=== PATIENT | male | born 1940 | race Caucasian/White ===

== ENCOUNTER → 2020-06-27 | Outpatient (CLI) | payer MEDICARE, OTHER ==
[~2020-06-27] MED LIST: ALBU0.63 NEB; ALBU2.5V8 IH; ALLO300T PO; CRESTOR20 MG PO; CYCL5TAB PO; DILT180C29 PO; FLUT1BLS IH; FLUT9.9S NS; GABA-586 PO; LORA10TA3 PO; METO-313 PO; OMEP40CA45 PO; RIVA20TA2 PO
== END ==
LOC: LAB 12:49
PROVIDERS: ATTEND Nurse Anesthetist, Certified Registered
DX: Z01.812 Encounter for preprocedural laboratory examination (principal); R13.10 Dysphagia, unspecified; Z20.828 Contact with and (suspected) exposure to other viral communicable diseases
CPT/HCPCS: U0003

== ENCOUNTER → 2020-06-30 | Day surgery (SDC) | payer MEDICARE, OTHER ==
[~2020-06-30] MED LIST changes: +IPRATRPIUM/ALBUTEROL 0.5/2.5MG 3 ML NEBU. NEB PRN; +IV RINGERS SOLUTION,LACTATED 1,000 ML IV SCH; +LIDOCAINE 2% PF 5 ML VIAL. ONE; +ONDANSETRON PF 4 MG/2 ML VIAL. IV PRN; +PROPOFOL 10,000 MCG/ML (20ML) VIAL IV ONE
[2020-06-30 13:10] VITALS: BP 174/74
== END | disposition home or self-care (01) ==
LOC: SURG 10:51
PROVIDERS: ATTEND Internal Medicine Gastroenterology
DX: R13.10 Dysphagia, unspecified (principal); K21.00 Gastro-esophageal reflux disease with esophagitis, without bleeding; K22.2 Esophageal obstruction; K29.00 Acute gastritis without bleeding; I48.91 Unspecified atrial fibrillation; J44.9 Chronic obstructive pulmonary disease, unspecified; Z79.899 Other long term (current) drug therapy; Z88.8 Allergy status to other drugs, medicaments and biological substances; Z88.0 Allergy status to penicillin
CPT/HCPCS: 43239; 43450; J2001; J2704; J7120

== ENCOUNTER → 2020-08-29 | Outpatient (CLI) | payer MEDICARE, OTHER ==
[2020-06-30 13:10] VITALS: BP 174/74
[~2020-08-29] MED LIST changes: -IPRATRPIUM/ALBUTEROL 0.5/2.5MG 3 ML NEBU. NEB PRN; -IV RINGERS SOLUTION,LACTATED 1,000 ML IV SCH; -LIDOCAINE 2% PF 5 ML VIAL. ONE; -ONDANSETRON PF 4 MG/2 ML VIAL. IV PRN; -PROPOFOL 10,000 MCG/ML (20ML) VIAL IV ONE
== END ==
LOC: LAB 13:21
PROVIDERS: ATTEND Nurse Anesthetist, Certified Registered
DX: Z01.812 Encounter for preprocedural laboratory examination (principal); K21.9 Gastro-esophageal reflux disease without esophagitis; Z20.828 Contact with and (suspected) exposure to other viral communicable diseases
CPT/HCPCS: U0003

== ENCOUNTER → 2020-09-01 | Day surgery (SDC) | payer MEDICARE, OTHER ==
[~2020-09-01] MED LIST changes: +IPRATRPIUM/ALBUTEROL 0.5/2.5MG 3 ML NEBU. NEB PRN; +IV RINGERS SOLUTION,LACTATED 1,000 ML IV SCH; +KETAMINE HCL IN NACL, ISO-OSM 50 MG/5 ML SYRINGE ONE; +LIDOCAINE 2% PF 5 ML VIAL. ONE; +ONDANSETRON PF 4 MG/2 ML VIAL. IV PRN; +PROPOFOL 10,000 MCG/ML (20ML) VIAL IV ONE
[2020-09-01 13:18] VITALS: BP 179/89
== END | disposition home or self-care (01) ==
LOC: SURG 10:53
PROVIDERS: ATTEND Internal Medicine Gastroenterology
DX: R13.10 Dysphagia, unspecified (principal); K22.2 Esophageal obstruction; K29.00 Acute gastritis without bleeding; J44.9 Chronic obstructive pulmonary disease, unspecified; I48.91 Unspecified atrial fibrillation; K21.00 Gastro-esophageal reflux disease with esophagitis, without bleeding; Z88.0 Allergy status to penicillin; Z88.8 Allergy status to other drugs, medicaments and biological substances; Z79.899 Other long term (current) drug therapy
CPT/HCPCS: 43239; 43450; 88305; 88342; J2001; J2704; J7120